=== PATIENT | male | born 1970 | race Hispanic/Latino ===

== ENCOUNTER 2021-06-19 14:54 | Emergency (ER) | payer SELFPAY ==
[~2021-06-19] VITALS: Ht 165.1 cm; Wt 100.0 kg
[~2021-06-19 14:54] MED LIST: CEPHALEXIN500 MG PO
[2021-06-19] MEDS ORDERED: KEFLEX500 MG PO (17:20)
[2021-06-19 17:25] VITALS: BP 141/94
== END 2021-06-19 17:36 | disposition home or self-care (01) | DRG 605 ==
LOC: ED 14:54
PROC: 0HQ1XZZ Repair Face Skin, External Approach (ICD-10-PCS; principal; 2021-06-19)
DX: S01.81XA Laceration without foreign body of other part of head, initial encounter (principal); W22.8XXA Striking against or struck by other objects, initial encounter; Y93.89 Activity, other specified; Y92.73 Farm field as the place of occurrence of the external cause; Y99.0 Civilian activity done for income or pay